=== PATIENT | female | born 1995 | race Caucasian/White ===

== ENCOUNTER 2019-11-13 12:47 | Emergency (ER) | payer OTHER ==
[~2019-11-13] VITALS: Ht 157.5 cm; Wt 51.0 kg
[2019-11-13] MEDS ORDERED: UNIS25TA3 PO (13:02)
[2019-11-13] MEDS ORDERED: PYRI25TA2 PO (13:02)
[2019-11-13] MEDS: NS 1,000 ML IV ONE (15:09)
[2019-11-13] MEDS: METOCLOPRAMIDE INJ 10MG/2ML VIAL (J2765) IV ONE (15:09)
[2019-11-13] MEDS: D5W/0.45% SODIUM CHLORIDE 1,000 ML IV ONE (15:30)
[2019-11-13] MEDS ORDERED: ONDA4TAB6 PO (17:37)
[2019-11-13 18:00] VITALS: BP 129/74
== END 2019-11-13 18:01 | disposition home or self-care (01) ==
LOC: M ED 12:47
DX: O21.9 Vomiting of pregnancy, unspecified (principal); Z3A.15 15 weeks gestation of pregnancy
CPT/HCPCS: 80047; 81001; 84702; 96361; 96374; 99284; J2765

== ENCOUNTER 2020-05-06 11:00 | Inpatient (IN) | payer OTHER ==
[~2020-05-06 11:00] MED LIST: ONDA4TAB6 PO; OXYTOCIN 30 UNITS IN 0.9% NaCl 500ML IV BAG (J2590) As Ordered ONE; OXYTOCIN 30 UNITS IN 0.9% NaCl 500ML IV BAG (J2590) ONE; PYRI25TA2 PO; UNIS25TA3 PO
[2020-05-06] MEDS ORDERED: MORPHINE 10 MG/ML 1ML VIAL (J2270) ONE (17:00)
[2020-05-06] MEDS ORDERED: PROMETHAZINE INJ 25 MG/ML VIAL (J2550) ONE (17:00)
[2020-05-06] MEDS ORDERED: MORPHINE 10 MG/ML 1ML VIAL (J2270) As Ordered ONE (17:08)
[2020-05-06] MEDS ORDERED: PROMETHAZINE INJ 25 MG/ML VIAL (J2550) As Ordered ONE (17:08)
[2020-05-06] MEDS ORDERED: FENTANYL 2MCG/ML ROPIVACAINE 0.2% IN 0.9% NACL 100ML IVBAG ONE (21:42)
[2020-05-07] MEDS ORDERED: OXYTOCIN 30 UNITS IN 0.9% NaCl 500ML IV BAG (J2590) As Ordered ONE (02:55)
[2020-05-07] MEDS ORDERED: OXYTOCIN 30 UNITS IN 0.9% NaCl 500ML IV BAG (J2590) ONE (03:00)
[2020-05-07] MEDS ORDERED: IBUPROFEN 800 MG TAB ONE ×2 (08:00→16:00)
[2020-05-07] MEDS ORDERED: miSOPROStol 200 MCG TAB (S0191) ONE (10:40)
[2020-05-07] MEDS ORDERED: LIDOCAINE 1% MDV 20ML VIAL ONE (10:40)
[2020-05-07] MEDS ORDERED: LIDOCAINE 1% MDV 20ML VIAL As Ordered ONE (10:48)
[2020-05-07] MEDS ORDERED: miSOPROStol 200 MCG TAB (S0191) As Ordered ONE (10:49)
[2020-05-07] MEDS ORDERED: ACETAMINOPHEN 325 MG TAB As Ordered ONE (13:25)
[2020-05-07] MEDS ORDERED: ACETAMINOPHEN 325 MG TAB ONE (13:30)
[2020-05-07] MEDS ORDERED: IBUPROFEN 800 MG TAB As Ordered ONE (16:05)
[2020-05-08] MEDS ORDERED: ACETAMINOPHEN TAB 650MG DOSE (2X325MG) ONE (05:15)
[2020-05-08] MEDS ORDERED: ACETAMINOPHEN TAB 650MG DOSE (2X325MG) As Ordered ONE (05:15)
[2020-05-08] MEDS ORDERED: IBUPROFEN 800 MG TAB ONE (13:20)
[2020-05-08] MEDS ORDERED: DIBUCAINE 1% OINTMENT 30GM ONE (13:20)
[2020-05-08] MEDS ORDERED: DIBUCAINE 1% OINTMENT 30GM As Ordered ONE (13:22)
[2020-05-08] MEDS ORDERED: IBUPROFEN 800 MG TAB As Ordered ONE (13:31)
[2020-06-27 16:43] LABS: HEMATOCRIT 34.2 % (36.0-47.0); HEMOGLOBIN 11.7 g/dl (12.0-15.5); MEAN CORPUSCULAR HEMOGLOBIN 32.9 pg (27.0-33.0); MEAN CORPUSCULAR HGB CONC 34.2 g/dl (32.0-36.5); MEAN CORPUSCULAR VOLUME 96.1 fl (80.0-96.0); PLATELET COUNT, AUTOMATED 176 10^3/uL (150-450); RED BLOOD COUNT 3.56 10^6/uL (4.00-5.40); WHITE BLOOD COUNT 6.7 10^3/uL (4.0-10.0)
--- NOTE | 2020-07-02 15:12 | DS ---
DATE OF ADMISSION: 05/06/2020 DATE OF DISCHARGE: 05/08/2020 This lady is a 1, para 1 now, came in at 40 and 3 weeks of gestation, was for social induction however she was hebert. She had an epidural in place, spontaneous vaginal delivery of a female infant, 8 pounds 5 ounces, 3770 grams, scores of 8 and 8 at 1 and 5 minutes, respectively. On the planned delivery note, it said she had a hemorrhage although her hemorrhage loss was 400 cc. On discharge, we discussed phlebitis, cystitis, mastitis, endometritis, and cellulitis, diet, exercise, pain management, perineal, breast, and wound care. Blood pressure is 115/64, respirations are 18, pulse is 71, temperature is 97.0. Admitting hemoglobin 11.7, hematocrit 34.2, and platelets were 167. Discharge hemoglobin was 9.3, hematocrit 27.7, and platelets were 151. Her medications have been dispensed at [facility]. She is to have a followup at 6 weeks at [facility] ([facility]). Discharged improved. All questions were answered, 20 minute discussion. JOSI
[2020-07-03 19:37] LABS: HEMATOCRIT 27.7 % (36.0-47.0); MEAN CORPUSCULAR HEMOGLOBIN 32.7 pg (27.0-33.0); MEAN CORPUSCULAR HGB CONC 33.6 g/dl (32.0-36.5); MEAN CORPUSCULAR VOLUME 97.5 fl (80.0-96.0); PLATELET COUNT, AUTOMATED 151 10^3/uL (150-450); RED BLOOD COUNT 2.84 10^6/uL (4.00-5.40); WHITE BLOOD COUNT 13.1 10^3/uL (4.0-10.0)
[2020-07-03 19:39] LABS: HEMOGLOBIN 9.3 g/dl (12.0-15.5)
== END 2020-05-08 19:15 | disposition home or self-care (01) | DRG 807 ==
LOC: M LDI 11:00
PROVIDERS: ADMIT Obstetrics & Gynecology; ATTEND Obstetrics & Gynecology
PROC: 10E0XZZ Delivery of Products of Conception, External Approach (ICD-10-PCS; principal; 2020-05-07)
PROC: 0KQM0ZZ Repair Perineum Muscle, Open Approach (ICD-10-PCS; 2020-05-07)
DX: O48.0 Post-term pregnancy (principal); Z37.0 Single live birth; Z3A.40 40 weeks gestation of pregnancy; O70.1 Second degree perineal laceration during delivery